=== PATIENT | female | born 1975 | race Caucasian/White ===

== ENCOUNTER → 2019-02-13 | Outpatient (CLI) | payer BC ==
--- NOTE | 2019-02-14 10:07 | MM ---
Reason for exam: screening (asymptomatic). Last mammogram was performed 1 year and 2 months ago. History: Patient is nulliparous. Family history of breast cancer in maternal aunt. Took hormonal contraceptives for 22 years beginning at age 11. Physical Findings: A clinical breast exam by your physician is recommended on an annual basis and results should be correlated with mammographic findings. MG 3D Screening Mammo W/Cad Bilateral CC and MLO view(s) were taken. Prior study comparison: December 14, 2017, mammogram, performed at [facility]. December 06, 2017, mammogram, performed at [facility]. December 16, 2014, mammogram, performed at [facility]. December 21, 2013, mammogram, performed at [facility]. The breast tissue is heterogeneously dense. This may lower the sensitivity of mammography. Finding: There is a new 5 mm equal density (isodense), obscured round mass located 9 cm from the nipple in the outer quadrant of the right breast. New finding since December 14, 2017, December 06, 2017, December 16, 2014, and December 21, 2013. ASSESSMENT: Incomplete: need additional imaging evaluation, BI-RAD 0 RECOMMENDATION: Special view mammogram and ultrasound of the right breast. [facility] will attempt to contact patient to return for supplemental views and ultrasound.
== END | disposition home or self-care (01) ==
LOC: RADMAMWWP 07:16
PROVIDERS: ATTEND Obstetrics & Gynecology
DX: Z12.31 Encounter for screening mammogram for malignant neoplasm of breast (principal)
CPT/HCPCS: 77063; 77067

== ENCOUNTER → 2019-02-27 | Outpatient (CLI) | payer BC ==
--- NOTE | 2019-02-27 10:55 | MM ---
Reason for exam: additional evaluation requested from abnormal screening. Last mammogram was performed less than 1 month ago. History: Patient is nulliparous. Family history of breast cancer in maternal aunt. Took hormonal contraceptives for 22 years beginning at age 11. Physical Findings: Nurse did not find any significant physical abnormalities on exam. MG 3D Work Up W/Cad RT Spot compression CC and ML view(s) were taken of the right breast. Prior study comparison: February 13, 2019, bilateral MG 3d screening mammo w/cad. December 14, 2017, mammogram, performed at [facility]. The breast tissue is heterogeneously dense. This may lower the sensitivity of mammography. Finding: There is a persistent 5-6 mm circumscribed round mass located 8 cm from the nipple in the upper outer quadrant, middle position of the right breast on ML 43/81. These results were verbally communicated with the patient and result sheet given to the patient on 02/27/19. ASSESSMENT: Incomplete: need additional imaging evaluation, BI-RAD 0 RECOMMENDATION: Ultrasound of the right breast.
--- NOTE | 2019-02-27 11:00 | USB ---
Reason for exam: additional evaluation requested from abnormal screening. History: Patient is nulliparous. Family history of breast cancer in maternal aunt. Took hormonal contraceptives for 22 years beginning at age 11. US Breast Workup Limited RT Right limited breast ultrasound including focal area of concern, retroareolar and axilla demonstrates a 0.5 x 0.3 x 0.6cm cystic lesion at 10 o'clock and a 0.5 x 0.5 x 0.4cm mixed lesion at 11 o'clock. Mammographically stable from 2018. These results were verbally communicated with the patient and result sheet given to the patient on 02/27/19. ASSESSMENT: Benign, BI-RAD 2 RECOMMENDATION: Routine screening mammogram of both breasts in 1 year.
== END | disposition home or self-care (01) ==
LOC: RADMAMWWP 08:47
PROVIDERS: ATTEND Obstetrics & Gynecology
DX: R92.8 Other abnormal and inconclusive findings on diagnostic imaging of breast (principal)
CPT/HCPCS: 77061; 77065

== ENCOUNTER → 2019-03-02 | Outpatient (CLI) | payer BC ==
--- NOTE | 2019-03-02 08:01 | MR ---
EXAMINATION TYPE: MR brain and iac wo/w con DATE OF EXAM: 03/02/2019 COMPARISON: None HISTORY: acoustic neuroma syndrome CONTRAST: Performed utilizing 7.5 mL intravenous Gadavist gadolinium contrast. TECHNIQUE: Multiplanar, multiecho imaging on a 3.0 Dejah magnet is performed through the brain. Atte ntion is paid to the internal auditory canals with thin section imaging. Postcontrast imaging is per formed through the internal auditory canals. FINDINGS:Craniovertebral junction is normal. The pituitary is normal. Optic chiasm is visualized is normal. Diffusion-weighted imaging is performed. No suspicious hyperintensity is present to suggest an acute intracranial infarct or acute ischemic area. Signal within the brain appears normal. No abnormal T2 or inversion recovery weighted sequence signal abnormality is evident. Thin section imaging is performed through the internal auditory canals and cerebellar pontine angles. No cerebellar pontine angle masses are evident. The internal auditory canals appear normal without expansion or erosion. Postcontrast imaging was performed. No suspicious enhancement is evident within the internal audito ry canals or the included portions of the brain. 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 Large p atent anterior communicating artery is evident. There is a retention cyst within the right maxillary sinus. Remaining paranasal sinuses and mastoid a ir cells are clear. IMPRESSIONS: 1. Normal internal auditory canals. 2. Pre and postcontrast MRI of the brain appears normal. 3. Retention cyst right maxillary sinus.
== END | disposition home or self-care (01) ==
LOC: RADMRIMAIN 06:00
PROVIDERS: ATTEND Family Medicine
DX: D33.3 Benign neoplasm of cranial nerves (principal)
CPT/HCPCS: 70553; A9585

== ENCOUNTER → 2020-06-03 | Outpatient (CLI) | payer BC ==
--- NOTE | 2020-06-03 09:50 | MM ---
Reason for exam: screening (asymptomatic). Last mammogram was performed 1 year and 3 months ago. History: Patient history of other cancer and is nulliparous. Family history of breast cancer in maternal aunt at age 50. Took hormonal contraceptives for 22 years beginning at age 11. Physical Findings: A clinical breast exam by your physician is recommended on an annual basis and results should be correlated with mammographic findings. MG 3D Screening Mammo W/Cad Bilateral CC and MLO view(s) were taken. Prior study comparison: February 27, 2019, right breast MG 3d work up w/cad RT. February 13, 2019, bilateral MG 3d screening mammo w/cad. December 06, 2017, mammogram, performed at [facility]. The breast tissue is heterogeneously dense. This may lower the sensitivity of mammography. There is no discrete abnormality. ASSESSMENT: Negative, BI-RAD 1 RECOMMENDATION: Routine screening mammogram of both breasts in 1 year.
== END | disposition home or self-care (01) ==
LOC: RADMAMWWP 07:30
PROVIDERS: ATTEND Family Medicine
DX: Z12.31 Encounter for screening mammogram for malignant neoplasm of breast (principal); Z80.3 Family history of malignant neoplasm of breast
CPT/HCPCS: 77063; 77067

== ENCOUNTER → 2021-10-30 | Outpatient (CLI) | payer BC ==
--- NOTE | 2021-11-02 08:38 | MM ---
Reason for Exam: Screening (asymptomatic). Last mammogram was performed 1 year(s) and 5 month(s) ago. Patient History: Menarche at age 11. Patient has no children. Other cancer. Hormonal Contraceptives for 22 years from age 11 until age 33. Maternal aunt had breast cancer, age 50. Last menstrual period: 10/15/2021 Risk Values: Zabrina 5 year model risk: 0.9%. NCI Lifetime model risk: 10.5%. Prior Study Comparison: 02/13/2019 Bilateral Screening Mammogram, [facility]. 02/27/2019 Right Diagnostic Mammogram, [facility]. 06/03/2020 Bilateral Screening Mammogram, [facility]. Tissue Density: The breast tissue is heterogeneously dense. This may lower the sensitivity of mammography. Findings: Analyzed By CAD. Benign-appearing bilateral axillary lymph nodes are redemonstrated. Tiny round well-defined masses throughout left breast tissue are stable. There is no suspicious group of microcalcifications or new suspicious mass in either breast. Overall Assessment: Benign, BI-RAD 2 Management: Screening Mammogram of both breasts in 1 year. A clinical breast exam by your physician is recommended on an annual basis and results should be correlated with mammographic findings. Electronically signed and approved by: Gabe Jones M.D.
== END | disposition home or self-care (01) ==
LOC: RADMAMWWP 07:38
PROVIDERS: ATTEND Family Medicine
DX: Z12.31 Encounter for screening mammogram for malignant neoplasm of breast (principal); Z80.3 Family history of malignant neoplasm of breast
CPT/HCPCS: 77063; 77067

== ENCOUNTER → 2022-12-02 | Outpatient (CLI) | payer BC ==
--- NOTE | 2022-12-02 10:37 | MM ---
Reason for Exam: Screening (asymptomatic). Last mammogram was performed 1 year(s) and 1 month(s) ago. Patient History: Menarche at age 11. Patient has no children. Other cancer. Hormonal Contraceptives for 22 years from age 11 until age 33. Maternal aunt had breast cancer, age 50. Maternal cousin had breast cancer. Risk Values: Zabrina 5 year model risk: 1.0%. NCI Lifetime model risk: 10.2%. Prior Study Comparison: 02/27/2019 Right Diagnostic Mammogram, [facility]. 06/03/2020 Bilateral Screening Mammogram, [facility]. 10/30/2021 Bilateral MG 3D screening mammo w/cad, [facility]. Tissue Density: The breast tissue is heterogeneously dense. This may lower the sensitivity of mammography. Findings: Analyzed By CAD. There is no suspicious group of microcalcifications or new suspicious mass. Overall Assessment: Negative, BI-RAD 1 Management: Screening Mammogram of both breasts in [address] [facility] will attempt to contact patient to return for supplemental views and ultrasound if indicated. Patient should continue monthly self-breast exams. A clinical breast exam by your physician is recommended on an annual basis. This exam should not preclude additional follow-up of suspicious palpable abnormalities. Note on Zabrina scores and lifetime risk: 1. A Zabrina score greater than 3% is considered moderate risk. If this is the case, consider specialist referral to assess eligibility for a risk reducing agent. 2. If overall lifetime risk for the development of breast cancer is 20% or higher, the patient may qualify for future screening with alternating mammogram and breast MRI. Electronically signed and approved by: Ron Doherty DO
== END | disposition home or self-care (01) ==
LOC: RADMAMWWP 07:16
PROVIDERS: ATTEND Family Medicine
DX: Z12.31 Encounter for screening mammogram for malignant neoplasm of breast (principal); Z80.3 Family history of malignant neoplasm of breast
CPT/HCPCS: 77063; 77067

== ENCOUNTER → 2023-03-08 | Outpatient (CLI) | payer BC ==
--- NOTE | 2023-03-08 19:13 | CT ---
EXAMINATION TYPE: CT chest wo con DATE OF EXAM: 03/08/2023 COMPARISON: None HISTORY: 47-year-old female R05.9, cough TECHNIQUE: Contiguous axial scanning of the chest without IV contrast. Coronal/sagittal reconstructi ons performed. CT DLP: 695mGycm. Automatic exposure control utilized for a dose reduction. FINDINGS: The heart is normal size without pericardial effusion. Aorta normal caliber with conventional vessel branching anatomy. No thoracic lymphadenopathy by CT size criteria. Some strandy atelectasis or scarring in the posterior right lower lobe. No consolidation or pleural e ffusion. Tiny hiatal hernia noted. Visualized upper abdomen otherwise shows an inferior hilar splenule. Bones: Mild degenerative disc disease lower thoracic spine. IMPRESSION: 1. Some mild strandy scarring or atelectasis of the posterior right lower lobe. 2. Otherwise, no acute pulmonary process seen.
== END | disposition home or self-care (01) ==
LOC: RADCTMAIN 16:22
PROVIDERS: ATTEND Family Medicine
DX: J98.11 Atelectasis (principal); R05.9 Cough, unspecified; R04.2 Hemoptysis
CPT/HCPCS: 71250

== ENCOUNTER → 2024-02-22 | Outpatient (CLI) | payer BC ==
--- NOTE | 2024-02-22 08:17 | MM ---
Reason for Exam: Screening (asymptomatic). Last mammogram was performed 1 year(s) and 3 month(s) ago. Patient History: Menarche at age 11. Patient has no children. Perimenopausal. Other cancer. Hormonal Contraceptives for 22 years from age 11 until age 33. Maternal aunt had breast cancer, age 50. Maternal cousin had breast cancer, age 50. Risk Values: Zabrina 5 year model risk: 1.0%. NCI Lifetime model risk: 10.0%. Prior Study Comparison: 06/03/2020 Bilateral Screening Mammogram, [facility]. 10/30/2021 Bilateral MG 3D screening mammo w/cad, [facility]. 12/02/2022 Bilateral MG 3D screening mammo w/cad, [facility]. Tissue Density: The breasts are heterogeneously dense, which may obscure small masses. Findings: Analyzed By CAD. Stable asymmetrically prominent tissue centrally in the left breast on CC view. Benign-appearing bilateral axillary lymph nodes are redemonstrated. There is no suspicious new group of microcalcifications or new suspicious mass in either breast. Overall Assessment: Benign, BI-RAD 2 Management: Screening Mammogram of both breasts in 1 year. . Patient should continue monthly self-breast exams. A clinical breast exam by your physician is recommended on an annual basis. This exam should not preclude additional follow-up of suspicious palpable abnormalities. Note on Zabrina scores and lifetime risk: 1. A Zabrina score greater than 3% is considered moderate risk. If this is the case, consider specialist referral to assess eligibility for a risk reducing agent. 2. If overall lifetime risk for the development of breast cancer is 20% or higher, the patient may qualify for future screening with alternating mammogram and breast MRI. [facility], , 02/22/2024 8:14 AM. Electronically signed and approved by: Gabe Jones M.D.
== END | disposition home or self-care (01) ==
LOC: RADMAMWWP 06:59
PROVIDERS: ATTEND Family Medicine
DX: Z12.31 Encounter for screening mammogram for malignant neoplasm of breast (principal); Z80.3 Family history of malignant neoplasm of breast; R92.333 Mammographic heterogeneous density, bilateral breasts
CPT/HCPCS: 77063; 77067